=== PATIENT | female | born 1990 | race Caucasian/White ===

== ENCOUNTER 2016-07-10 01:37 | Inpatient (IN) | payer OTHER ==
[~2016-07-10] VITALS: Ht 170.2 cm; Wt 99.8 kg
[2016-07-10] MEDS ORDERED: LACTATED RINGER'S 1000ML 1,000 ML IV SCH (02:03)
[2016-07-10] MEDS ORDERED: LACTATED RINGER'S 1000ML 1,000 ML IV PRN (02:03)
[2016-07-10] MEDS ORDERED: PENICILLIN G POTASSIUM IV 3 MU in DEXTROSE 5% 100ML 100 ML IV PRN (02:15)
[2016-07-10] MEDS ORDERED: PENICILLIN G POTASSIUM IV 6 MU in DEXTROSE 5% 250ML 250 ML IV ONE (02:15)
[2016-07-10 02:37] LABS: MEAN CELL VOLUME 91.8 fL (80-100); MEAN CORPUSCULAR HEMOGLOBIN 32.7 pg (25-34); MEAN CORPUSCULAR HGB CONC 35.6 g/dl (32-36); MEAN PLATELET VOLUME 10.7 fL (7.4-10.4); PLATELET COUNT 106 K/uL (130-400); RED BLOOD COUNT 3.92 M/uL (4.2-5.4); WHITE BLOOD COUNT 8.06 K/uL (4.8-10.8)
[2016-07-10] MEDS ORDERED: OXYTOCIN 30 UNITS/500ML NSS IV ONE (03:37)
[2016-07-10] MEDS ORDERED: OXYTOCIN INJ 20 UNITS in LACTATED RINGER'S 1000ML 1,000 ML IV SCH (04:07)
[2016-07-10] MEDS ORDERED: BENZOCAINE 20% AER SPR 82.5 GM CAN EXT PRN (04:15)
[2016-07-10] MEDS ORDERED: OXYTOCIN 30 UNITS/500ML NSS IV PRN (04:15)
[2016-07-10] MEDS ORDERED: SUPERCREAM 0.870 % 15GM JAR EXT PRN (04:15)
[2016-07-10] MEDS ORDERED: ACETAMINOPHEN/CODEINE 300/30MG TAB PO PRN ×2 (04:15)
[2016-07-10] MEDS ORDERED: ACETAMINOPHEN 325 MG TAB PO PRN (04:15)
[2016-07-10] MEDS ORDERED: LANOLIN OINT EXT PRN ×2 (04:15)
[2016-07-10] MEDS ORDERED: HYDROCORTISONE ACETATE 25 MG SUPP PR PRN (04:15)
--- NOTE | 2016-07-10 05:03 | DELIVERY SUMMARY ---
DATE OF OPERATION: 07/10/2016 The patient dilated to complete and pushed to deliver a viable male , Apgars 8 and 9 via over second degree perineal laceration. Anterior shoulder delivered with gentle downward traction and effective maternal expulsive efforts. Nose and mouth were then bulb suctioned. The remainder of the shoulders and body delivered with ease. The was vigorous and crying at . True knot noted of the umbilical cord. Placenta was delivered spontaneously and intact 3-vessel cord. Perineal laceration repaired after 1% local lidocaine anesthesia using 3-0 Vicryl in the usual fashion. Cervix and sulci intact. Small periclitoral laceration noted, but hemostatic and therefore not repaired. EBL 300 mL. Mother and baby stable in recovery. I attest to the content of the Intraoperative Record and any orders documented therein. Any exceptions are noted below. MTDD
[2016-07-10 05:31] VITALS: Ht 170.2 cm; Wt 99.8 kg
[2016-07-10] MEDS ORDERED: PREN1TAB29 (05:38)
[2016-07-10 08:20] VITALS: BP 122/81; PULSE 87; TEMP 36.7; O2SAT 97
[2016-07-10] MEDS: DOCUSATE SODIUM 100 MG CAP PO SCH ×2 (08:30→19:13)
[2016-07-10] MEDS: IBUPROFEN 600 MG TAB PO PRN ×2 (08:30→19:13)
[2016-07-10 11:20] VITALS: BP 127/85; PULSE 64; TEMP 36.7; O2SAT 97
[2016-07-10 14:50] VITALS: BP 132/79; PULSE 87; TEMP 36.5; O2SAT 98
[2016-07-10 19:22] VITALS: BP 119/79; PULSE 80; TEMP 36.6
[2016-07-10 23:39] VITALS: BP 116/76; PULSE 67; TEMP 36.4
[2016-07-11 03:57] VITALS: BP 120/81; PULSE 74; TEMP 36.7
--- NOTE | 2016-07-11 06:50 | Progress Note ---
Subjective Jul 11, 2016. Subjective conversation w/ patient, physical exam Ambulation: ambulating normally Voiding: no voiding problems Passing Gas: Yes Diet Tolerance: Regular Diet Lochia: Small Feeding Type: Breast Feeding Pain: No pain reprted this morning Review of Systems Constitutional: No chills, No fever Respiratory: No cough, No shortness of breath Cardiac: No chest pain Breast: No breast pain Abdomen: No nausea, No pain, No vomiting Female : No dysuria Objective Vital Signs Date Time Temp Pulse Resp B/P Pulse Ox O2 Delivery O2 Flow Rate FiO2 07/11/16 03:57 36.7 74 18 120/81 Room Air 07/10/16 23:40 Room Air 07/10/16 23:39 36.4 67 18 116/76 Room Air 07/10/16 19:22 36.6 80 18 119/79 Room Air 07/10/16 14:50 98 Room Air 07/10/16 14:50 36.5 87 20 132/79 98 Room Air 07/10/16 11:20 36.7 64 18 127/85 97 Room Air 07/10/16 08:20 36.7 87 20 122/81 97 Room Air 07/10/16 08:20 97 Room Air Physical Exam General Appearance: WELL-APPEARING, WD/WN, NO APPARENT DISTRESS Respiratory/Chest: lungs clear, normal breath sounds Cardiovascular: regular rate, rhythm, no gallop, no murmur Abdomen: normal bowel sounds, non tender, soft Fundus: Firm, Relation to Umbilicus (At umbilicus) Extremities: no calf tenderness Medications Current Inpatient Medications Medications (Trade) Dose Ordered Sig/[facility] Route Start Time Stop Time Status Last Admin Dose Admin Oxytocin (Pitocin IV) 30 units UD PRN IV 07/10/16 04:15 08/09/16 04:14 Benzocaine (Dermoplast Aero Spr) 1 appln PRN PRN EXT 07/10/16 04:15 08/09/16 04:14 07/10/16 08:32 82.5 APPLN Cocaine HCl (Supercream 0.870% Cr) BID PRN EXT 07/10/16 04:15 07/24/16 04:14 Hydrocortisone Acetate (Anusol Hc Supp) 25 mg BID PRN NC 07/10/16 04:15 08/09/16 04:14 Lanolin (Lanolin Oint) PRN PRN EXT 07/10/16 04:15 08/09/16 04:14 Ibuprofen (Motrin Tab) 600 mg Q4H PRN PO 07/10/16 04:15 08/09/16 04:14 07/10/16 19:13 600 MG Acetaminophen (Tylenol Tab) 650 mg Q6H PRN PO 07/10/16 04:15 08/09/16 04:14 Acetaminophen/ Codeine Phosphate (Tylenol w/ Codeine #3 Tab) 1 tab Q4H PRN PO 07/10/16 04:15 08/09/16 04:14 Acetaminophen/ Codeine Phosphate (Tylenol w/ Codeine #3 Tab) 2 tab Q4H PRN PO 07/10/16 04:15 08/09/16 04:14 Docusate Sodium (coLACE CAP) 100 mg BID PO 07/10/16 08:00 08/09/16 07:59 07/10/16 19:13 100 MG Diphtheria/ Pertussis/Tetanus Vacc (Adacel Inj) 0.5 ml ONCE ONCE IM. 07/11/16 09:00 07/11/16 09:01 Assessment and Plan Post- Day#: 1 Continue Routine Care: - Vital Signs reviewed and WNL (temp max 36.7) - Blood Type: O+, GBS+ , Rubella Immune - Patient doing well clinically - Encourage Ambulation today - Pain well controlled with Motrin - Tolerating PO Diet Well Resident Physician Supervision Note: I interviewed and examined the patient. Discussed with Dr. Juárez and agree with findings and plan as documented in the note. Any exceptions or clarifications are listed here: [None] Documented By: Romy Hernández
[2016-07-11 07:45] VITALS: BP 133/83; PULSE 80; TEMP 36.5
[2016-07-11] MEDS ORDERED: DIPHTHERIA/TETANUS/PERTUSSIS 0.5 ML SYR/VIAL IM. ONE (09:00)
[2016-07-11] MEDS: DOCUSATE SODIUM 100 MG CAP PO SCH ×2 (09:35→19:57)
[2016-07-11] MEDS: IBUPROFEN 600 MG TAB PO PRN ×2 (09:35→18:28)
[2016-07-11 15:45] VITALS: BP 117/76; PULSE 80; TEMP 36.8
[2016-07-12 00:05] VITALS: BP 124/80; PULSE 66; TEMP 36.6; O2SAT 97
--- NOTE | 2016-07-12 06:40 | Progress Note ---
Subjective Jul 12, 2016. Subjective conversation w/ patient, physical exam Ambulation: ambulating normally Voiding: no voiding problems Passing Gas: Yes Diet Tolerance: Regular Diet Lochia: Small Feeding Type: Breast Feeding Pain: No pain reported this morning Review of Systems Constitutional: No chills, No fever Respiratory: No cough, No shortness of breath Cardiac: No chest pain Breast: No breast pain Abdomen: No nausea, No pain, No vomiting Female : No dysuria Objective Vital Signs Date Time Temp Pulse Resp B/P Pulse Ox O2 Delivery O2 Flow Rate FiO2 07/12/16 00:05 36.6 66 18 124/80 97 Room Air 07/12/16 00:05 97 Room Air 07/11/16 15:45 Room Air 07/11/16 15:45 36.8 80 18 117/76 Room Air 07/11/16 07:45 Room Air 07/11/16 07:45 36.5 80 18 133/83 Room Air Physical Exam General Appearance: WELL-APPEARING, WD/WN, NO APPARENT DISTRESS Respiratory/Chest: lungs clear, normal breath sounds Cardiovascular: regular rate, rhythm, no gallop, no murmur Abdomen: normal bowel sounds, non tender, soft Fundus: Firm, Relation to Umbilicus (At level of umbilicus) Extremities: no calf tenderness Medications Current Inpatient Medications Medications (Trade) Dose Ordered Sig/[facility]resa Route Start Time Stop Time Status Last Admin Dose Admin Oxytocin (Pitocin IV) 30 units UD PRN IV 07/10/16 04:15 08/09/16 04:14 Benzocaine (Dermoplast Aero Spr) 1 appln PRN PRN EXT 07/10/16 04:15 08/09/16 04:14 07/10/16 08:32 82.5 APPLN Cocaine HCl (Supercream 0.870% Cr) BID PRN EXT 07/10/16 04:15 07/24/16 04:14 Hydrocortisone Acetate (Anusol Hc Supp) 25 mg BID PRN [place] 07/10/16 04:15 08/09/16 04:14 Lanolin (Lanolin Oint) PRN PRN EXT 07/10/16 04:15 08/09/16 04:14 Ibuprofen (Motrin Tab) 600 mg Q4H PRN PO 07/10/16 04:15 08/09/16 04:14 07/11/16 18:28 600 MG Acetaminophen (Tylenol Tab) 650 mg Q6H PRN PO 07/10/16 04:15 08/09/16 04:14 Acetaminophen/ Codeine Phosphate (Tylenol w/ Codeine #3 Tab) 1 tab Q4H PRN PO 07/10/16 04:15 08/09/16 04:14 Acetaminophen/ Codeine Phosphate (Tylenol w/ Codeine #3 Tab) 2 tab Q4H PRN PO 07/10/16 04:15 08/09/16 04:14 Docusate Sodium (coLACE CAP) 100 mg BID PO 07/10/16 08:00 08/09/16 07:59 07/11/16 19:57 100 MG Assessment and Plan Post- Day#: 2 Continue Routine Care: - Vital Signs reviewed and WNL (temp max 36.6) - Blood Type: O+, GBS+ , Rubella Immune - Patient doing well clinically - Encourage Ambulation today - Pain well controlled - Tolerating PO Diet Well - Discharge today Resident Physician Supervision Note: I was present with Dr. Juárez during the history and exam. I discussed the case with the resident and agree with the findings and plan as documented in the note. Any exceptions or clarifications are listed here: PPD#2 doing well. Discharge to home today. RTO 6w for visit. Documented By: Jacqueline Mathew
--- NOTE | 2016-07-12 06:41 | Discharge Instructions ---
Discharge Instructions Admission Reason for Admission: Labor Check Discharge Discharge Diagnosis / Problem: Vaginal Delivery Discharge Goals Goal(s): Routine recovery after delivery Medications Continue Dispensed Medications: supercream, dermaplast, tucks, lansinoh Activity Recommendations Activity Limitations: per Instructions/Follow-up section . Instructions / Follow-Up Instructions / Follow-Up ACTIVITY RECOMMENDATIONS: * Gradual return to full activity over the next 2-3 weeks. * No lifting - nothing heavier than baby over the next 2-3 weeks. * Do not engage in vigorous exercise, sexual activity or sports until cleared by your physician. * Do not drive or operate any motorized equipment until cleared by your physician. * You may shower/bathe daily. MEDICATIONS: For discomfort or pain, you may use Acetaminophen (Tylenol), Ibuprofen (Advil), or Naproxen (Aleve) following the package directions. For constipation you may use Colace following the package directions. BREAST CARE: If you are not breast feeding: * Wear a supportive bra 24 hours a day for one to two weeks. * Avoid stimulating your breasts and nipples as much as possible during the first few weeks after delivery. * When taking a shower, have the warm water hit your back, not breasts. * When your breasts feel full, apply ice packs. Usually three to four times a day helps ease the discomfort. * Take a mild pain medication (Tylenol / Motrin) when you are uncomfortable. If breast feeding: * Use breast milk to lubricate nipples. Lansinoh cream may be used for sore nipples. You do not need to remove cream prior to breast feeding. If using a different brand of cream, check the label for directions regarding removal of cream prior to nursing. * Wear a supportive bra. * If having problems with breasts or breast feeding, call a [employer] payroll consultant or your health care provider. EPISIOTOMY CARE: After delivery, if you have an episiotomy (stitches), the following steps will ease discomfort and aid healing. * For the first 24 hours after delivery, place ice packs next to your episiotomy to help reduce swelling. * After the first 24 hour-period, sitz baths, either portable or in the tub, are suggested. A shower with a shower arm sprayed over the episiotomy may be comforting. * Gisselle care should be done after each voiding and bowel movement. Squirt warm water from a plastic bottle over the perineum (region of the body between the anus and urinary opening) and pat dry. * Use Dermoplast to ease discomfort. Shake container. [place] directly over the episiotomy. Place a Tucks on a clean sanitary pad next to your episiotomy. SPECIAL CARE INSTRUCTIONS: When you are discharged from the hospital, it is important for you to follow the instructions listed below: * During the first week at home, you should be able to care for yourself and your baby. In addition, the usual light household activities are encouraged. * Limit your activities to the way you feel. Do not try to clean the house or move furniture. Be sensible. * If you actively engage in sports and have done so up until the time of your delivery, you may resume these activities as soon as you feel able. This may take up to one month or even longer. Use good judgment. * Continue to take your vitamins for at least six weeks after the of your baby. * Your diet need not be limited unless you were on a special diet before your delivery. Breast-feeding mothers need around 2500 calories per day and at least 64-80 ounces of fluid per day (8 to 10 glasses). * You should eat foods from the four major food groups. Crash diets or fad diets are to be avoided. Eating lean meats, fresh fruits and vegetables, low-fat dairy products, high fiber foods and a regular exercise program, will help you get back to your pre- weight without putting your health at risk. * Constipation is sometimes a problem after delivery. Take a mild laxative as needed. If breast feeding, Milk of Magnesia is acceptable to use. You may use a suppository or Fleets enema if no episiotomy. * A daily shower or tub bath is suggested. Be sure to thoroughly and gently dry the perineum. * A bloody vaginal discharge will usually continue until around four weeks post . A small amount of bleeding may continue for as long as six weeks. Vaginal discharge changes from the bright red bleeding after delivery to pink then brownish and finally yellowish-pink before becoming white and disappearing. * Bleeding may increase with activity. Your first period may come in 4-8 weeks. If you are breast feeding, your period may be delayed even longer. * [place] (sex) can begin whenever both you and your partner feel comfortable and do not have any form of genital infection. It is recommended that you wait at least six weeks for internal and external healing to occur. If you have questions, please talk to your health care practitioner. A condom should be used to prevent infection and . * Foreplay, gentle intercourse and lubrication is very important the first several times to prevent pain. A water-based lubricant such as K-Y jelly or Astroglide may be used. * If you have RH negative blood and your baby is RH positive, you will receive RHOGAM by injection prior to discharge. The nurse will give you a card to keep with you that has the date and place that you received RHOGAM after delivery. * During your care, you had a Rubella screen done to check for the presence of rubella antibodies in your blood. If your test was negative, you will receive a Rubella vaccine prior to discharge. This vaccine may cause a fever, soreness at the injection site and flu-like symptoms. If these symptoms persist, notify your health care practitioner. is not advised for one month after a Rubella vaccine. * Verbalizes understanding of car seat law as reviewed with patient nursing. * Car Seat hand-out given and reviewed with patient by nursing. * Shaken baby information reviewed with patient by nursing. Call you doctor if: * Heavy bleeding (saturating several pads an hour) or passing clots the size of your fist. * A fever >101 degrees F (38.3 degrees C) on two occasions four hours apart and /or chills. * Unusual pain in the pelvic or vaginal areas. * "Baby Blues" lasting longer than two weeks. If you have any questions or concerns, call your health care practitioner at . FOLLOW UP VISIT: * Please call the office at to schedule a 6 week examination. It is important you keep this appointment. It is important for you to make arrangements for either yearly or twice yearly check-ups thereafter. Current Hospital Diet Patient's current hospital diet: Regular OB Diet Discharge Diet Recommended Diet: Regular Diet Pending Studies Studies pending at discharge: no Medical Emergencies . Who to Call and When: Medical Emergencies: If at any time you feel your situation is an emergency, please call 911 immediately. . Non-Emergent Contact Non-Emergency issues call your: Car Rental Clerk . . "Provider Documentation" section prepared by Isai Juárez. VTE Core Measure Inpt VTE Proph given/why not?: Treatment not indicated
[2016-07-12 07:40] VITALS: BP 127/84; PULSE 71; TEMP 36.7; O2SAT 97
[2016-07-12] MEDS: DOCUSATE SODIUM 100 MG CAP PO SCH (10:29)
[2016-07-12 10:35] VITALS: BP_DIAS 84; PULSE 71; TEMP 36.7
== END 2016-07-12 10:50 | disposition home or self-care (01) | DRG 775 ==
LOC: C.LD 01:37 → C.OPB 01:37 → C.LD 02:07 → UNDOADMIN 02:31 → C.LD 02:31 → C.OBG 06:32
PROVIDERS: ADMIT Obstetrics & Gynecology; ATTEND Obstetrics & Gynecology
PROC: 10E0XZZ Delivery of Products of Conception, External Approach (ICD-10-PCS; principal; 2016-07-10)
PROC: 0KQM0ZZ Repair Perineum Muscle, Open Approach (ICD-10-PCS; principal; 2016-07-10)
DX: O42.02 Full-term premature rupture of membranes, onset of labor within 24 hours of rupture (principal); O70.1 Second degree perineal laceration during delivery; O69.2XX0 Labor and delivery complicated by other cord entanglement, with compression, not applicable or unspecified; O48.0 Post-term pregnancy; O99.824 Streptococcus B carrier state complicating childbirth; Z3A.40 40 weeks gestation of pregnancy; Z37.0 Single live birth

== ENCOUNTER → 2016-08-24 | Outpatient (CLI) | payer OTHER ==
[~2016-08-24] MED LIST: PREN1TAB29
== END | disposition home or self-care (01) ==
LOC: C.PAPS 15:05
PROVIDERS: ATTEND Obstetrics & Gynecology
DX: Z12.4 Encounter for screening for malignant neoplasm of cervix (principal)

== ENCOUNTER → 2016-10-06 | Outpatient (CLI) | payer OTHER ==
[2016-10-06 09:37] LABS: PREG INTERNAL NEGATIVE QC NEG CLEAR BACKGROUND; PREG INTERNAL POSITIVE QC POS CONTROL LINE
== END | disposition home or self-care (01) ==
LOC: C.LAB1850 08:46
PROVIDERS: ATTEND Physician Assistant
DX: Z30.430 Encounter for insertion of intrauterine contraceptive device (principal)

== ENCOUNTER → 2017-02-02 | Outpatient (CLI) | payer OTHER ==
[2017-02-02 12:51] LABS: CHOLESTEROL/HDL RATIO 4.4
== END | disposition home or self-care (01) ==
LOC: C.LABBFT 07:53
PROVIDERS: ATTEND Internal Medicine
DX: Z13.6 Encounter for screening for cardiovascular disorders (principal)

== ENCOUNTER → 2017-02-14 | Outpatient (CLI) | payer OTHER | END | disposition home or self-care (01) | LOC: C.LABBFT 07:40 | PROVIDERS: ATTEND Internal Medicine | DX: Z13.29 Encounter for screening for other suspected endocrine disorder (principal) ==

== ENCOUNTER → 2017-02-22 | Outpatient (CLI) | payer OTHER ==
[2017-02-23 12:30] LABS: THYROGLOBULIN 83.8 NG/ML (2.8-40.9)
== END | disposition home or self-care (01) ==
LOC: C.LABBFT 08:58
PROVIDERS: ATTEND Nurse Practitioner
DX: O90.5 Postpartum thyroiditis (principal)

== ENCOUNTER → 2017-03-26 | Outpatient (CLI) | payer OTHER | END | disposition home or self-care (01) | LOC: C.LABBFT 07:33 | PROVIDERS: ATTEND Nurse Practitioner | DX: O90.5 Postpartum thyroiditis (principal) ==